=== PATIENT | male | born 1960 | race Asian ===

== ENCOUNTER 2016-10-21 15:06 | Inpatient (IN) | payer OTHER ==
[~2016-10-21] VITALS: Ht 165.1 cm; Wt 61.1 kg
[2016-10-21] MEDS ORDERED: IOVERSOL 350 MG/ML 100 ML VIAL ONE (15:18)
[2016-10-21] MEDS ORDERED: SODIUM CHLORIDE 0.9% 100 ML ONE (15:19)
[2016-10-21 15:47] LABS: BASOPHILS % (AUTO) 0.2 % (0.0-2.0); EOSINOPHILS % (AUTO) 0.3 % (1.0-6.0); HEMATOCRIT 42.2 % (41-53); HEMOGLOBIN 13.7 g/dL (13.5-17.5); LYMPHOCYTES % (AUTO) 8.1 % (22.0-44.0); MEAN CORPUSCULAR HEMOGLOBIN 31.6 pg (26.0-34.0); MEAN CORPUSCULAR HGB CONC 32.5 G/dL (31.0-37.0); MEAN CORPUSCULAR VOLUME 97 fL (80-100); MONOCYTES # (AUTO) 0.4 K/uL (0.1-1.0); MONOCYTES % (AUTO) 3.6 % (2.0-9.0); NEUTROPHILS # (AUTO) 10.9 K/uL (1.8-7.7); PLATELET COUNT (AUTO) 254 K/uL (150-450); RED BLOOD CELL COUNT(AUTO) 4.34 MIL/uL (4.50-5.90); RED CELL DISTRIBUTION WIDTH 14.5 % (11.5-14.5); WHITE BLOOD COUNT (AUTO) 12.4 K/uL (4.5-11.0)
[2016-10-21 15:52] LABS: NEUTROPHILS % (AUTO) 87.8 % (40.0-70.0)
[2016-10-21 16:00] LABS: PROTHROMBIN TIME 10.8 SEC (9.4-11.6)
[2016-10-21 16:03] LABS: ANION GAP 10 mmol/L (8-16); CARBON DIOXIDE 26 mmol/L (22-29); CHLORIDE 104 mmol/L (98-107); CREATININE 1.05 mg/dL (0.60-1.30); GLOMERULAR FILTR. RATE CALC > 60 mL/min (>60); POTASSIUM 3.7 mmol/L (3.5-5.1); SODIUM SERUM 140 mmol/L (136-145); UREA NITROGEN, BLOOD 13 mg/dL (7-18)
[2016-10-21 16:12] LABS: ALANINE AMINOTRANSFERASE 24 U/L (12-78); ALBUMIN 3.5 g/dL (3.4-5.0); ASPARTATE AMINOTRANSFERASE 15 U/L (15-37); BILIRUBIN,TOTAL 0.3 mg/dL (0.1-1.0); CREATINE KINASE, TOTAL 99 U/L (39-308); TOTAL PROTEIN, SERUM 6.5 g/dL (6.4-8.2)
[2016-10-21] MEDS ORDERED: ALTEPLASE PER STROKE PROTOCOL CLINICAL ONE ×2 (16:15)
[2016-10-21] MEDS ORDERED: LABETALOL HCL 5 MG/ML 20 ML VIAL IVP PRN (16:15)
[2016-10-21 16:39] LABS: CREATINE KINASE MB 0.7 ng/mL (0-5)
[2016-10-21] MEDS ORDERED: WATER FOR INJECTION STERILE IV ONE ×2 (16:45)
[2016-10-21] MEDS ORDERED: ALTEPLASE IV ONE ×2 (16:45)
[2016-10-21] MEDS ORDERED: ONDANSETRON HCL 4 MG/2 ML VIAL IVP PRN (21:15)
[2016-10-21] MEDS ORDERED: MAGNESIUM HYDROXIDE SUSPENSION 30 ML UDCUP PO PRN (21:15)
[2016-10-21] MEDS ORDERED: ACETAMINOPHEN 325 MG TABLET PO PRN (21:15)
[2016-10-21] MEDS ORDERED: ALBUTEROL SULFATE 2.5 MG/0.5 ML NEB SOLUTION NEB PRN (21:15)
[2016-10-21] MEDS: SIMVASTATIN 40 MG TABLET PO SCH (21:54)
[2016-10-22 01:28] LABS: ADD UA MICROSCOPIC NO; APPEARANCE,URINE CLEAR (CLEAR); GLUCOSE, URINE (UA) NEGATIVE (NEGATIVE); KETONES,URINE NEGATIVE (NEGATIVE); LEUKOCYTE ESTERASE ,URINE NEGATIVE (NEGATIVE); OCCULT BLOOD,URINE NEGATIVE (NEGATIVE); PROTEIN,URINE TRACE (NEGATIVE)
[2016-10-22 08:14] LABS: BASOPHILS % (AUTO) 0.2 % (0.0-2.0); EOSINOPHILS % (AUTO) 1.1 % (1.0-6.0); HEMOGLOBIN 14.7 g/dL (13.5-17.5); LYMPHOCYTES # (AUTO) 0.8 K/uL (1.0-4.8); LYMPHOCYTES % (AUTO) 7.6 % (22.0-44.0); MEAN CORPUSCULAR HEMOGLOBIN 31.5 pg (26.0-34.0); MEAN CORPUSCULAR HGB CONC 32.7 G/dL (31.0-37.0); MEAN CORPUSCULAR VOLUME 96 fL (80-100); MONOCYTES # (AUTO) 0.9 K/uL (0.1-1.0); MONOCYTES % (AUTO) 7.8 % (2.0-9.0); NEUTROPHILS # (AUTO) 9.2 K/uL (1.8-7.7); NEUTROPHILS % (AUTO) 83.3 % (40.0-70.0); PLATELET COUNT (AUTO) 238 K/uL (150-450); RED BLOOD CELL COUNT(AUTO) 4.69 MIL/uL (4.50-5.90); RED CELL DISTRIBUTION WIDTH 14.2 % (11.5-14.5); WHITE BLOOD COUNT (AUTO) 11.1 K/uL (4.5-11.0)
[2016-10-22] MEDS: PANTOPRAZOLE SODIUM 40 MG/VIAL IVP SCH (08:24)
[2016-10-22] MEDS: DOCUSATE SODIUM 100 MG CAPSULE PO SCH ×2 (08:25→20:22)
[2016-10-22 14:11] VITALS: BP 140/85
[2016-10-22 16:04] VITALS: BP 133/80
[2016-10-22] MEDS ORDERED: INFLUENZA VIRUS VACCINE QVS 2016-17 (3YR+)/PF 60 MCG/0.5 ML SYRINGE IM ONE (16:45)
[2016-10-22 16:58] VITALS: BP 142/87
[2016-10-22] MEDS: SIMVASTATIN 40 MG TABLET PO SCH (20:22)
[2016-10-22 20:55] VITALS: BP 141/99
[2016-10-23 00:15] VITALS: BP 138/87
[2016-10-23 04:28] VITALS: BP 128/93
[2016-10-23 08:50] VITALS: BP 132/91
[2016-10-23] MEDS: DOCUSATE SODIUM 100 MG CAPSULE PO SCH ×2 (08:55→20:05)
[2016-10-23] MEDS: PANTOPRAZOLE SODIUM 40 MG/VIAL IVP SCH (08:55)
[2016-10-23 12:00] VITALS: BP 144/81
[2016-10-23 16:00] VITALS: BP 137/95
[2016-10-23] MEDS: SIMVASTATIN 40 MG TABLET PO SCH (20:05)
[2016-10-23 20:07] VITALS: BP 130/95
[2016-10-24 00:07] VITALS: BP 130/83
[2016-10-24 04:07] VITALS: BP 122/81
[2016-10-24 07:35] VITALS: BP 131/89
[2016-10-24] MEDS: DOCUSATE SODIUM 100 MG CAPSULE PO SCH (08:14)
[2016-10-24] MEDS: PANTOPRAZOLE SODIUM 40 MG/VIAL IVP SCH (08:14)
[2016-10-24 11:37] VITALS: BP 143/67
[2016-10-24] MEDS ORDERED: ASPIRIN 81 MG CHEWABLE TABLET PO SCH (12:15)
[2016-10-24 12:56] LABS: HEMOGLOBIN A1C 5.3 % (4.5-6.2)
[2016-10-24 13:03] LABS: CHOL/HDL RATIO 2.2 (4.2-7.3); THYROID STIMULATING HORMONE 1.55 uIU/mL (0.36-3.74)
[2016-10-24 16:13] VITALS: BP 134/91
[2016-10-24] MEDS ORDERED: SIMV-261 PO (16:57)
[2016-10-24] MEDS ORDERED: ASPI-891 PO (16:58)
[2016-10-24] MEDS ORDERED: SIMVASTATIN 20 MG TABLET PO SCH (21:00)
== END 2016-10-24 18:05 | disposition home or self-care (01) | DRG 63 ==
LOC: EMS 15:09 → 4E 10-22 12:55
PROVIDERS: ADMIT Internal Medicine; ATTEND Internal Medicine
PROC: 3E03317 Introduction of Other Thrombolytic into Peripheral Vein, Percutaneous Approach (ICD-10-PCS; principal; 2016-10-22)
PROC: 3E0234Z Introduction of Serum, Toxoid and Vaccine into Muscle, Percutaneous Approach (ICD-10-PCS; 2016-10-22)
DX: I63.9 Cerebral infarction, unspecified (principal); I66.02 Occlusion and stenosis of left middle cerebral artery; I10 Essential (primary) hypertension; E78.5 Hyperlipidemia, unspecified; R47.01 Aphasia; D72.829 Elevated white blood cell count, unspecified; Z23 Encounter for immunization
CPT/HCPCS: 70496; 70551; 82607; 82746; 83036; 84443; 87081; 90471; 93005; 93306; 96374; 96375; 97161; 99291; 99292; C9113; J2997; J7050

== ENCOUNTER 2018-02-12 07:31 | Inpatient (IN) | payer SELFPAY ==
[~2018-02-12] VITALS: Ht 162.6 cm; Wt 62.6 kg
[~2018-02-12 07:31] MED LIST: ASPI-891 PO; SIMV-261 PO
[2018-02-12 07:56] LABS: BASOPHILS % (AUTO) 0.6 % (0.0-2.0); EOSINOPHILS % (AUTO) 2.7 % (1.0-6.0); HEMATOCRIT 46.1 % (41-53); HEMOGLOBIN 15.7 g/dL (13.5-17.5); LYMPHOCYTES # (AUTO) 1.4 K/uL (1.0-4.8); LYMPHOCYTES % (AUTO) 21.2 % (22.0-44.0); MEAN CORPUSCULAR HEMOGLOBIN 32.6 pg (26.0-34.0); MEAN CORPUSCULAR VOLUME 96 fL (80-100); MONOCYTES # (AUTO) 0.5 K/uL (0.1-1.0); MONOCYTES % (AUTO) 7.7 % (2.0-9.0); NEUTROPHILS # (AUTO) 4.6 K/uL (1.8-7.7); NEUTROPHILS % (AUTO) 67.8 % (40.0-70.0); PLATELET COUNT (AUTO) 283 K/uL (150-450); RED BLOOD CELL COUNT(AUTO) 4.82 MIL/uL (4.50-5.90); RED CELL DISTRIBUTION WIDTH 13.6 % (11.5-14.5)
[2018-02-12 08:01] LABS: ANION GAP 7 mmol/L (8-16); CALCIUM, TOTAL 8.9 mg/dL (8.8-10.5); CARBON DIOXIDE 25 mmol/L (22-29); CHLORIDE 104 mmol/L (98-107); CREATININE 1.05 mg/dL (0.60-1.30); GLOMERULAR FILTR. RATE CALC > 60 mL/min (>60); GLUCOSE,RANDOM 114 mg/dL (70-110); POTASSIUM 4.2 mmol/L (3.5-5.1); SODIUM SERUM 136 mmol/L (136-145); UREA NITROGEN, BLOOD 14 mg/dL (7-18)
[2018-02-12 08:04] LABS: PROTHROMBIN TIME 10.2 SEC (9.4-11.6)
[2018-02-12 08:08] LABS: ALANINE AMINOTRANSFERASE 70 U/L (12-78); ALBUMIN 3.7 g/dL (3.4-5.0); ALKALINE PHOSPHATASE 53 U/L (46-116); ASPARTATE AMINOTRANSFERASE 41 U/L (15-37); BILIRUBIN,TOTAL 0.5 mg/dL (0.1-1.0); CREATINE KINASE, TOTAL 65 U/L (39-308); TOTAL PROTEIN, SERUM 7.3 g/dL (6.4-8.2)
[2018-02-12 08:18] LABS: B-TYPE NATRIURETIC PEPTIDE 6 pg/mL (0-100)
[2018-02-12 08:42] LABS: APPEARANCE,URINE CLEAR (CLEAR); BILIRUBIN,URINE NEGATIVE (NEGATIVE); GLUCOSE, URINE (UA) NEGATIVE (NEGATIVE); KETONES,URINE NEGATIVE (NEGATIVE); LEUKOCYTE ESTERASE ,URINE NEGATIVE (NEGATIVE); NITRATE,URINE NEGATIVE (NEGATIVE); OCCULT BLOOD,URINE NEGATIVE (NEGATIVE); PROTEIN,URINE NEGATIVE (NEGATIVE); UROBILINOGEN,URINE 0.2 mg/dL (<=1.0)
[2018-02-12] MEDS ORDERED: ACETAMINOPHEN 325 MG TABLET PO PRN ×2 (09:00→09:45)
[2018-02-12] MEDS ORDERED: 0.9% SODIUM CHLORIDE 10 ML SYRINGE IVP PRN (09:00)
[2018-02-12] MEDS ORDERED: MAGNESIUM HYDROXIDE SUSPENSION 30 ML UDCUP PO PRN (09:45)
[2018-02-12] MEDS: ATORVASTATIN CALCIUM 20 MG TABLET PO SCH (10:19)
[2018-02-12] MEDS: ASPIRIN 81 MG CHEWABLE TABLET PO SCH (10:19)
[2018-02-12] MEDS: PANTOPRAZOLE SODIUM 40 MG DR TABLET PO SCH (10:19)
[2018-02-12 10:24] VITALS: BP 110/78
[2018-02-12] MEDS: METOPROLOL SUCCINATE 25 MG ER TABLET PO SCH (13:20)
[2018-02-12 15:25] VITALS: BP 110/70
[2018-02-12 19:21] VITALS: BP 110/78
[2018-02-12] MEDS: DOCUSATE SODIUM 100 MG CAPSULE PO SCH (19:58)
[2018-02-13 00:06] VITALS: BP 113/74
[2018-02-13 04:26] VITALS: BP 112/76
[2018-02-13 07:07] LABS: BASOPHILS % (AUTO) 0.2 % (0.0-2.0); EOSINOPHILS % (AUTO) 2.8 % (1.0-6.0); HEMATOCRIT 44.4 % (41-53); HEMOGLOBIN 15.2 g/dL (13.5-17.5); LYMPHOCYTES # (AUTO) 1.1 K/uL (1.0-4.8); LYMPHOCYTES % (AUTO) 12.5 % (22.0-44.0); MEAN CORPUSCULAR HEMOGLOBIN 32.9 pg (26.0-34.0); MEAN CORPUSCULAR HGB CONC 34.2 G/dL (31.0-37.0); MEAN CORPUSCULAR VOLUME 96 fL (80-100); MONOCYTES # (AUTO) 0.7 K/uL (0.1-1.0); MONOCYTES % (AUTO) 8.1 % (2.0-9.0); NEUTROPHILS % (AUTO) 76.4 % (40.0-70.0); PLATELET COUNT (AUTO) 266 K/uL (150-450); RED BLOOD CELL COUNT(AUTO) 4.61 MIL/uL (4.50-5.90); RED CELL DISTRIBUTION WIDTH 13.4 % (11.5-14.5)
[2018-02-13 07:12] VITALS: BP 125/77
[2018-02-13 07:31] LABS: ALANINE AMINOTRANSFERASE 57 U/L (12-78); ALBUMIN 3.5 g/dL (3.4-5.0); ALKALINE PHOSPHATASE 45 U/L (46-116); ANION GAP 5 mmol/L (8-16); ASPARTATE AMINOTRANSFERASE 23 U/L (15-37); BILIRUBIN,TOTAL 0.7 mg/dL (0.1-1.0); CALCIUM, TOTAL 8.4 mg/dL (8.8-10.5); CARBON DIOXIDE 29 mmol/L (22-29); CHLORIDE 104 mmol/L (98-107); CREATININE 1.08 mg/dL (0.60-1.30); GLOMERULAR FILTR. RATE CALC > 60 mL/min (>60); GLUCOSE,RANDOM 91 mg/dL (70-110); POTASSIUM 3.8 mmol/L (3.5-5.1); SODIUM SERUM 138 mmol/L (136-145); UREA NITROGEN, BLOOD 13 mg/dL (7-18)
[2018-02-13] MEDS: METOPROLOL SUCCINATE 25 MG ER TABLET PO SCH (08:21)
[2018-02-13] MEDS: PANTOPRAZOLE SODIUM 40 MG DR TABLET PO SCH (08:23)
[2018-02-13] MEDS: DOCUSATE SODIUM 100 MG CAPSULE PO SCH (08:23)
[2018-02-13] MEDS: ATORVASTATIN CALCIUM 20 MG TABLET PO SCH (08:23)
[2018-02-13] MEDS: ASPIRIN 81 MG CHEWABLE TABLET PO SCH (08:23)
[2018-02-13 10:54] VITALS: BP 121/79
== END 2018-02-13 12:25 | disposition home or self-care (01) | DRG 313 ==
LOC: EMS 07:58 → 5S 09:49
PROVIDERS: ADMIT Internal Medicine; ATTEND Internal Medicine
DX: R07.89 Other chest pain (principal); F17.200 Nicotine dependence, unspecified, uncomplicated; Z86.73 Personal history of transient ischemic attack (TIA), and cerebral infarction without residual deficits
CPT/HCPCS: 83735; 93005; 93306; 99285